=== PATIENT | male | born 1985 | race Caucasian/White ===

== ENCOUNTER 2024-04-14 14:24 | Emergency (ER) | payer OTHER ==
[~2024-04-14] VITALS: Ht 177.8 cm; Wt 78.2 kg
[2024-04-14] MEDS ORDERED: NITROGLYCERIN 0.4 MG SUBL SL PRN (14:45)
[2024-04-14] MEDS ORDERED: ASPIRIN 81 MG CHEW PO ONE (14:45)
[2024-04-14 15:13] LABS: BASOPHILS 0.9 % (0-2); EOSINOPHILS 0.5 % (0-6); HEMATOCRIT 49.8 % (35.0-50.0); HEMOGLOBIN 17.2 g/dL (12.0-18.0); MCH 31.7 (27-36); MCHC 34.6 g/dl (30-36); MCV 91.7 fl (81-99); MONOCYTES 9.3 % (0-12); NEUTROPHILS 58.3 % (39-80); PLATELET COUNT 197 K/uL (140-440); RBC 5.43 M/ul (4.3-5.7); RDW 13.9 (10.5-15.0)
[2024-04-14 15:24] LABS: ALBUMIN 4.5 g/dL (3.4-5.0); ALBUMIN/GLOBULIN RATIO 1.36 (1.1-2.4); ANION GAP 12.7 (7-21); BILIRUBIN, TOTAL 1.7 ng/dL (0.2-1.0); BUN/CREATININE RATIO 13.79 (6.0-28.6); CALCIUM 9.5 mg/dL (8.5-10.1); CREATININE, SERUM 1.16 mg/dL (0.70-1.30); MAGNESIUM 2.2 mg/dL (1.8-2.4); POTASSIUM 3.7 mmol/L (3.5-5.1); PROTEIN, TOTAL 7.8 g/dL (6.4-8.2)
[2024-04-14 15:55] VITALS: BP 134/85
--- NOTE | 2024-04-15 23:11 | EKG ---
[facility] [address] [place] [address] Signed Normal sinus rhythm with sinus arrhythmia Normal ECG No previous ECGs available Confirmed by Isreal Dinh MD () on 04/15/2024 11:11:33 PM Electronically Signed By: ISREAL DINH MD 04/15/24 PATIENT NAME: OMID GARCIA Electrocardiogram DATE OF : 89 PHYSICIAN: ISREAL DINH MD REPORT #: [id number] REPORT IS CONFIDENTIAL AND NOT TO BE RELEASED WITHOUT AUTHORIZATION
== END 2024-04-14 14:48 | disposition home or self-care (01) ==
LOC: ED 14:24
PROVIDERS: Emergency Medicine
DX: M54.12 Radiculopathy, cervical region (principal); F41.9 Anxiety disorder, unspecified; R07.89 Other chest pain
CPT/HCPCS: 36415; 71045; 80053; 83735; 84484; 85025; 93005; 93010; 99285-25